=== PATIENT | female | born 1990 | race Caucasian/White ===

== ENCOUNTER 2016-12-01 20:34 | Emergency (ER) | payer OTHER ==
[~2016-12-01] VITALS: Ht 157.5 cm; Wt 68.0 kg
--- NOTE | 2016-12-01 21:23 | PHYS DOC ---
Adult General Chief Complaint Chief Complaint: ASTHMA HPI HPI Patient is a 26 year old female who presents here today complaining of shortness of breath difficult breathing sharp right-sided chest pain and a sore throat with sinus drainage going on for several days. Patient reports she is . Patient reports her last last menstrual period was August 13. Patient reports that she is August. Patient denies any history of hypertension diabetes liver or kidney pals. Patient denies any history of CHF. Patient has not had no abdominal surgeries. Patient portion of the history of asthma in the past. Patient is not on control pills. Patient does not smoke drink or do any drugs. Patient does not have a history of PE or DVT. Patient has any fevers shakes chills nausea vomiting diarrhea dysuria frequency urgency or abdominal pain. Patient's physical exam is remarkable for tenderness to palpation to her right anterior chest wall. Patient's oropharynx is mildly erythematous with apparent sinus drainage in the back of her throat. Patient's TMs were mildly erythematous with no drainage or fluid behind the TM. Patient's neck is supple without any Kernig's or Brudzinski's signs. Patient does not present with any signs or symptoms of be consistent with PE, pneumonia, pneumothorax, ND, or carditis. Patient is clinically and hemodynamically stable at this time. /PE patient presented with signs and symptoms that are consistent with likely allergic rhinitis resulting in cough chest pain sore throat or sinus drainage. Patient be given Benadryl and Tylenol to assist with her pain. Patient's clinically hemodynamically stable. The risks and benefits of chest x-ray discuss the patient she prefers no chest x-ray. Patient's EKG shows normal sinus rhythm at a heart rate of [address]-T wave abnormalities. Patient's EKG shows some mildly elevated ST segments however there are less than 1 mm and not consistent with ST elevation ND. Patient's symptoms are highly consistent with a ST elevation ND. Review of Systems Review of Systems Constitutional: Denies fever or chills [] Eyes: Denies change in visual acuity, redness, or eye pain [] HENT: + nasal congestion and sore throat [] Respiratory: + cough shortness of breath [] Cardiovascular: No additional information not addressed in HPI [] GI: Denies abdominal pain, nausea, vomiting, bloody stools or diarrhea [] : Denies dysuria or hematuria [] Musculoskeletal: Denies back pain or joint pain [] Integument: Denies rash or skin lesions [] Neurologic: Denies headache, focal weakness or sensory changes [] Endocrine: Denies polyuria or polydipsia [] Current Medications Current Medications Current Medications Medications (Trade) Dose Ordered Sig/Jorge Start Time Stop Time Status Last Admin Dose Admin Acetaminophen (Tylenol) 650 mg 1X ONCE 12/01/16 21:45 12/01/16 21:46 DC Albuterol Sulfate (Ventolin Neb Soln) 2.5 mg 1X ONCE 12/01/16 21:45 12/01/16 21:46 DC 12/01/16 21:34 2.5 MG Diphenhydramine HCl (Benadryl) 25 mg 1X ONCE 12/01/16 21:45 12/01/16 21:46 DC Allergies Allergies Allergies Coded Allergies Type Severity Reaction Last Updated Verified No Known Drug Allergies 12/01/16 No Physical Exam Physical Exam Constitutional: Well developed, well nourished, no acute distress, non-toxic appearance. [] HENT: Normocephalic, atraumatic, bilateral external ears normal, oropharynx mildly erythematous. No exudates. Eyes: PERRLA, EOMI, conjunctiva normal, no discharge. [] Neck: Normal range of motion, no tenderness, supple, no stridor. [] Cardiovascular:Heart rate regular rhythm, Lungs & Thorax: Bilateral breath sounds clear to auscultation [] Abdomen: Bowel sounds normal, soft, no tenderness, no masses, no pulsatile masses. [] Skin: Warm, dry, no erythema, no rash. [] Back: No tenderness, no CVA tenderness. [] Extremities: No tenderness, no cyanosis, no clubbing, ROM intact, no edema. [] Neurologic: Alert and oriented X 3, normal motor function, normal sensory function, no focal deficits noted. [] Psychologic: Affect normal, judgement normal, mood normal. [] Current Patient Data Vital Signs Vital Signs Date Time Temp Pulse Resp B/P (MAP) Pulse Ox O2 Delivery O2 Flow Rate FiO2 12/01/16 21:35 96 Room Air 12/01/16 21:30 104 22 105/61 (76) 12/01/16 21:04 98.3 98.3 Lab Values Laboratory Tests Test 12/01/16 20:04 POC Urine HCG, Qualitative Hcg positive (Negative) EKG EKG [] Radiology/Procedures Radiology/Procedures [] Course & Med Decision Making Course & Med Decision Making Pertinent Labs and Imaging studies reviewed. (See chart for details) [] Dragon Disclaimer Dragon Disclaimer This electronic medical record was generated, in whole or in part, using a voice recognition dictation system. Departure Departure Impression: Primary Impression: Chest wall pain Additional Impressions: Asthma Sinus drainage Disposition: HOME, SELF-CARE Condition: IMPROVED Patient Instructions: Chest Wall Pain, Headache and Allergies Scripts Albuterol Sulfate (VENTOLIN HFA INHALER) 18 Gm Hfa.aer.ad 2 PUFF INH QID Y for WHEEZING, #1 INHALER 0 Refills Prov: TOM ARIAS MD 12/01/16 Problem Qualifiers TOM ARIAS MD December 01, 2016 21:23
[2016-12-01 21:30] VITALS: BP 105/61
[2016-12-01] MEDS ORDERED: diphenhydrAMINE HCL 25 MG CAPSULE PO ONE (21:45)
[2016-12-01] MEDS ORDERED: ALBUTEROL SULFATE 2.5 MG/3 ML NEBU. NEB ONE (21:45)
[2016-12-01] MEDS ORDERED: ACETAMINOPHEN 325 MG TABLET. PO ONE (21:45)
[2016-12-01] MEDS ORDERED: VENTOLIN HFA18 GM INH (21:50)
--- NOTE | 2016-12-02 07:10 | EKG ---
[facility] [address] [place] [address] Test Date: 2016-12-01 Test Time: 20:51:05 Pat Name: AURELIO VANEGAS Department: Room: Gender: F Nurse Aide: : 1990 Requested By: TOM ARIAS Order Number: [id number] Reading MD: Hitesh Smallwood Measurements Intervals [place] Rate: 93 P: 49 ME: 138 QRS: 48 QRSD: 88 T: 17 QT: 334 QTc: 418 Interpretive Statements SINUS RHYTHM NON-SPECIFIC ST/T CHANGES Electronically Signed On 12-09-2016 8:50:10 CDT by Hitesh Smallwood
--- NOTE | 2016-12-02 07:10 | EKG ---
[facility] [address] [place] [address] Test Date: 2016-12-01 Test Time: 21:15:13 Pat Name: AURELIO VANEGAS Department: Room: Gender: F Schedule Maker: : 1990 Requested By: TOM ARIAS Order Number: [id number] Reading MD: Hitesh Smallwood Measurements Intervals [place] Rate: 91 P: 45 WI: 148 QRS: 46 QRSD: 88 T: 22 QT: 332 QTc: 410 Interpretive Statements SINUS RHYTHM Electronically Signed On 12-09-2016 8:50:15 CDT by Hitesh Smallwood
== END 2016-12-01 21:55 | disposition home or self-care (01) ==
LOC: ER 20:34
DX: O99.512 Diseases of the respiratory system complicating pregnancy, second trimester (principal); R07.89 Other chest pain; J45.909 Unspecified asthma, uncomplicated; Z3A.00 Weeks of gestation of pregnancy not specified
CPT/HCPCS: 81025; 93005; 94250; 94640; 99284-25

== ENCOUNTER 2017-07-01 17:09 | Emergency (ER) | payer OTHER ==
[~2017-07-01] VITALS: Ht 160 cm; Wt 68.0 kg
[~2017-07-01 17:09] MED LIST: VENTOLIN HFA18 GM INH
[2017-07-01 17:25] VITALS: BP 122/73
--- NOTE | 2017-07-01 17:52 | PHYS DOC ---
Past Medical History Past Medical History: Asthma Past Surgical History: No Surgical History Alcohol Use: None Drug Use: None Adult General Chief Complaint Chief Complaint: MEDICAL CLEARANCE HPI HPI Patient is a 26 year old female with history of asthma who presents today in the ED stating she lives in maternity home and one of the adult residents in the maternity home was seen in the ED earlier today and reported she was diagnosed with RSV and they were all sent to the ED to be tested for RSV. Patient has no symptoms. She is in the ED with 2 children with no symptoms. Review of Systems Review of Systems Constitutional: Denies fever or chills [] Eyes: Denies change in visual acuity, redness, or eye pain [] HENT: Denies nasal congestion or sore throat [] Respiratory: Denies cough or shortness of breath [] Cardiovascular: No additional information not addressed in HPI [] GI: Denies abdominal pain, nausea, vomiting, bloody stools or diarrhea [] : Denies dysuria or hematuria [] Musculoskeletal: Denies back pain or joint pain [] Integument: Denies rash or skin lesions [] Neurologic: Denies headache, focal weakness or sensory changes [] Endocrine: Denies polyuria or polydipsia [] All other systems were reviewed and found to be within normal limits, except as documented in this note. Allergies Allergies Allergies Coded Allergies Type Severity Reaction Last Updated Verified No Known Drug Allergies 12/01/16 No Physical Exam Physical Exam Constitutional: Well developed, well nourished, no acute distress, non-toxic appearance. [] HENT: Normocephalic, atraumatic, bilateral external ears normal, oropharynx moist, no oral exudates, nose normal. [] Eyes: PERRLA, EOMI, conjunctiva normal, no discharge. [] Neck: Normal range of motion, no tenderness, supple, no stridor. [] Cardiovascular:Heart rate regular rhythm, no murmur [] Lungs & Thorax: Bilateral breath sounds clear to auscultation [] Abdomen: Bowel sounds normal, soft, no tenderness, no masses, no pulsatile masses. [] Skin: Warm, dry, no erythema, no rash. [] Back: No tenderness, no CVA tenderness. [] Extremities: No tenderness, no cyanosis, no clubbing, ROM intact, no edema. [] Neurologic: Alert and oriented X 3, normal motor function, normal sensory function, no focal deficits noted. [] Psychologic: Affect normal, judgement normal, mood normal. [] Current Patient Data Vital Signs Vital Signs Date Time Temp Pulse Resp B/P (MAP) Pulse Ox O2 Delivery O2 Flow Rate FiO2 07/01/17 17:25 98.2 71 18 96 Room Air 98.2 EKG EKG [] Radiology/Procedures Radiology/Procedures [] Course & Med Decision Making Course & Med Decision Making Pertinent Labs and Imaging studies reviewed. (See chart for details) This a a 26 year old female who presents today in the ED stating she lives in maternity home and one of the adult residents there was seen in the ED earlier today and reported she was diagnosed with RSV and they were all sent to the ED to be tested for RSV. Patient has no symptoms. She is in the ED with 2 children with no symptoms. Reassured patient she does not have RSV considering she has no symptoms neither do adults get RSV and if they get symptoms it is considered an upper respiratory infection symptom. Recommended following up with the primary care doctor. Vani Disclaimer Dragon Disclaimer This electronic medical record was generated, in whole or in part, using a voice recognition dictation system. Departure Departure Impression: Primary Impression: Normal exam Disposition: 01 HOME, SELF-CARE Condition: STABLE Referrals: KAYLEEN REED MD (PCP) Follow-up in one week Patient Instructions: Exam, Normal, Adult Additional Instructions: You were examined in the emergency room are have a normal exam. You do not have any symptoms to warrant RSV infection. Adults get upper respiratory infection symptoms which you do not have. You do not need to be tested for RSV. ESTHELA BURTON TRUCK TRAILER MECHANIC Jul 01, 2017 17:52
== END 2017-07-01 18:07 | disposition home or self-care (01) ==
LOC: ER 17:09
DX: Z00.00 Encounter for general adult medical examination without abnormal findings (principal); J45.909 Unspecified asthma, uncomplicated
CPT/HCPCS: 99281

== ENCOUNTER 2017-12-16 20:56 | Emergency (ER) | payer OTHER ==
[2017-12-16 21:27] LABS: ADD MAN DIFF? NO
[2017-12-16 21:31] LABS: BASO % 0 % (0-3); EOS # 0.2 x10^3/uL (0.0-0.7); EOS % 3 % (0-3); HEMATOCRIT 40.6 % (36.0-47.0); HEMOGLOBIN 13.8 g/dL (12.0-15.5); LYMPH # 2.7 x10^3/uL (1.0-4.8); LYMPH % 37 % (24-48); MEAN CORPUSCULAR HEMOGLOBIN 30 pg (25-35); MEAN CORPUSCULAR HGB CONC 34 g/dL (31-37); MEAN CORPUSCULAR VOLUME 89 fL (79-100); MONO # 0.5 x10^3/uL (0.0-1.1); MONO % 7 % (0-9); NEUT # 3.7 x10^3uL (1.8-7.7); NEUT % 52 % (31-73); PLATELET COUNT 161 x10^3/uL (140-400); RED BLOOD COUNT 4.56 x10^6/uL (3.50-5.40); RED CELL DISTRIBUTION WIDTH 12.9 % (11.5-14.5); WHITE BLOOD COUNT 7.2 x10^3/uL (4.0-11.0)
[2017-12-16 21:44] LABS: URIC ACID 5.5 mg/dL (2.6-6.0)
== END 2017-12-16 21:56 | disposition home or self-care (01) ==
LOC: ER 20:56
DX: M10.9 Gout, unspecified (principal); J45.909 Unspecified asthma, uncomplicated
CPT/HCPCS: 36415; 84550; 85025; 99284

== ENCOUNTER → 2017-12-24 | Outpatient (CLI) | payer OTHER | END | disposition home or self-care (01) | LOC: KCIC 08:56 | DX: R10.2 Pelvic and perineal pain (principal) | CPT/HCPCS: 74018 ==

== ENCOUNTER 2018-02-17 19:53 | Emergency (ER) | payer OTHER | END 2018-02-17 20:38 | disposition home or self-care (01) | LOC: ER 19:53 | DX: H10.89 Other conjunctivitis (principal); B99.9 Unspecified infectious disease; J45.909 Unspecified asthma, uncomplicated; F31.9 Bipolar disorder, unspecified | CPT/HCPCS: 99283 ==

== ENCOUNTER 2018-07-14 19:06 | Emergency (ER) | payer OTHER ==
[~2018-07-14] VITALS: Ht 157.5 cm; Wt 83.0 kg
[~2018-07-14 19:06] MED LIST changes: +INDO25CA5 PO; +POLY10DR3 EACHEYE
[2018-07-14 19:29] VITALS: BP 142/85
[2018-07-14 19:45] LABS: BILIRUBIN,URINE NEGATIVE (NEG); CLARITY,URINE CLEAR; COLOR,URINE YELLOW; NITRITE,URINE NEGATIVE (NEG); PH,URINE 5.5; PROTEIN,URINE NEGATIVE (NEG-TRACE); UROBILINOGEN,URINE 0.2 mg/dL (0.2 mg/dL)
[2018-07-14 20:02] LABS: BACTERIA,URINE 0 /HPF (0-FEW); RBC,URINE 0 /HPF (0-2); SQUAMOUS EPITHELIAL CELL,UR MOD /LPF; WBC,URINE OCC /HPF (0-4)
[2018-07-14] MEDS ORDERED: DICY20TA3 PO (20:23)
[2018-07-14] MEDS ORDERED: LOPE2CAP88 PO (20:23)
[2018-07-14] MEDS ORDERED: ONDA4TAB12 PO (20:23)
--- NOTE | 2018-07-14 20:23 | PHYS DOC ---
Past Medical History Past Medical History: Asthma, Bipolar Past Surgical History: No Surgical History Alcohol Use: None Drug Use: None Adult General Chief Complaint Chief Complaint: DIARRHEA HPI HPI Patient is a 27 year old female with history of asthma, bipolar, who presents today complaining of abdominal cramping and diarrhea that began yesterday. Patient is in the ED bit to children with similar symptoms. Patient denies any fever. Denies any nausea vomiting. Denies any melena. Review of Systems Review of Systems Constitutional: Denies fever or chills [] Eyes: Denies change in visual acuity, redness, or eye pain [] HENT: Denies nasal congestion or sore throat [] Respiratory: Denies cough or shortness of breath [] Cardiovascular: No additional information not addressed in HPI [] GI: Reports abdominal cramping with diarrhea, denies nausea, vomiting, bloody stools : Denies dysuria or hematuria [] Musculoskeletal: Denies back pain or joint pain [] Integument: Denies rash or skin lesions [] Neurologic: Denies headache, focal weakness or sensory changes [] All other systems were reviewed and found to be within normal limits, except as documented in this note. Allergies Allergies Allergies Coded Allergies Type Severity Reaction Last Updated Verified No Known Drug Allergies 12/01/16 No Physical Exam Physical Exam Constitutional: Well developed, well nourished, no acute distress, non-toxic appearance. [] HENT: Normocephalic, atraumatic, bilateral external ears normal, oropharynx moist, no oral exudates, nose normal. [] Eyes: PERRLA, EOMI, conjunctiva normal, no discharge. [] Neck: Normal range of motion, no tenderness, supple, no stridor. [] Cardiovascular:Heart rate regular rhythm, no murmur [] Lungs & Thorax: Bilateral breath sounds clear to auscultation [] Abdomen: Bowel sounds normal, soft, no tenderness, no masses, no pulsatile masses. [] Skin: Warm, dry, no erythema, no rash. [] Back: No tenderness, no CVA tenderness. [] Extremities: No tenderness, no cyanosis, no clubbing, ROM intact, no edema. [] Neurologic: Alert and oriented X 3, normal motor function, normal sensory function, no focal deficits noted. [] Psychologic: Affect normal, judgement normal, mood normal. [] Current Patient Data Vital Signs Vital Signs Date Time Temp Pulse Resp B/P (MAP) Pulse Ox O2 Delivery O2 Flow Rate FiO2 07/14/18 19:29 98.3 82 16 142/85 (104) 100 Room Air 98.3 Lab Values Laboratory Tests Test 07/14/18 19:30 Urine Collection Type Unknown Urine Color Yellow Urine Clarity Clear Urine pH 5.5 Urine Specific [place] >=1.030 Urine Protein Negative mg/dL (NEG-TRACE) Urine Glucose (UA) Negative mg/dL (NEG) Urine Ketones (Stick) Negative mg/dL (NEG) Urine Blood Negative (NEG) Urine Nitrite Negative (NEG) Urine Bilirubin Negative (NEG) Urine Urobilinogen Dipstick 0.2 mg/dL (0.2 mg/dL) Urine Leukocyte Esterase Negative (NEG) Urine RBC 0 /HPF (0-2) Urine WBC Occ /HPF (0-4) Urine Squamous Epithelial Cells Mod /LPF Urine Bacteria 0 /HPF (0-FEW) Urine Mucus Marked /LPF EKG EKG [] Radiology/Procedures Radiology/Procedures [] Course & Med Decision Making Course & Med Decision Making Pertinent Labs and Imaging studies reviewed. (See chart for details) This is a 27-year-old. The patient presented to the ED today with abdominal cramping and diarrhea for one day. Patient is in the ED with 2 children with similar symptoms. Negative urine hCG, urine negative for infection. Symptoms are viral, discharged with Zofran and dicyclomine. Instructed push fluids and maintain good hand hygiene. Follow-up with the PCP in the course of next week if symptoms continue. Dragon Disclaimer Dragon Disclaimer This electronic medical record was generated, in whole or in part, using a voice recognition dictation system. Departure Departure Impression: Primary Impression: Abdominal pain Additional Impression: Diarrhea Disposition: HOME, SELF-CARE Condition: STABLE Referrals: NO PCP (PCP) ALEX SLAUGHTER MD follow up in one week Patient Instructions: Abdominal Pain, Diarrhea, [id number] Additional Instructions: You were evaluated in the emergency room for abdominal cramping and diarrhea, your symptoms are likely viral, push fluids, maintain good hand hygiene, follow up with your own doctor in 1-2 weeks. Scripts Ondansetron (ONDANSETRON ODT) 4 Mg Tab.rapdis 1 TAB PO PRN Q6-8HRS, #16 TAB Prov: MUTUNGA,ESTHELA RANJIT 07/14/18 Loperamide HCl (Imodium A-D) 2 Mg Capsule 2 MG PO TID, #12 CAP Prov: ESTHELA BURTON RANJIT 07/14/18 Dicyclomine Hcl (DICYCLOMINE HCL) 20 Mg Tablet 1 TAB PO TID, #30 TAB 1 Refill Prov: ESTHELA BURTON RANJIT 07/14/18 Attending Signature Attending Signature I have reviewed the PA/COACH's note and plan of care. I was available for consultation as needed during the patient's visit in the emergency department. I agree with the clinical impression, plan, and disposition. Problem Qualifiers Primary Impression: Abdominal pain Abdominal location: generalized Qualified Codes: R10.84 - Generalized abdominal pain Additional Impression: Diarrhea Diarrhea type: unspecified type Qualified Codes: R19.7 - Diarrhea, unspecified ESTHELA BURTON RANJIT Jul 14, 2018 20:23 NICOLETTE CHANDRA DO Jul 15, 2018 04:32
== END 2018-07-14 20:34 | disposition home or self-care (01) ==
LOC: ER 19:06
DX: R10.84 Generalized abdominal pain (principal); R19.7 Diarrhea, unspecified; J45.909 Unspecified asthma, uncomplicated; F41.9 Anxiety disorder, unspecified
CPT/HCPCS: 81001; 99283

== ENCOUNTER 2018-09-30 15:37 | Emergency (ER) | payer OTHER ==
[~2018-09-30] VITALS: Ht 157.5 cm; Wt 83.0 kg
[~2018-09-30 15:37] MED LIST changes: +DICY20TA3 PO; +LOPE2CAP88 PO; +ONDA4TAB12 PO
[2018-09-30 16:05] VITALS: BP 122/62
--- NOTE | 2018-09-30 16:32 | PHYS DOC ---
Past Medical History Past Medical History: Asthma, Bipolar Past Surgical History: No Surgical History Alcohol Use: None Drug Use: None Adult General Chief Complaint Chief Complaint: COUGH HPI HPI Patient is a 27 year old female with history of asthma, bipolar, who presents to the ED today complaining of sore throat, body aches, chills, cough, nasal congestion, fevers, symptoms for 3 days, patient is in the ED with 2 children with similar symptoms. Review of Systems Review of Systems Constitutional: Reports fever Eyes: Denies change in visual acuity, redness, or eye pain [] HENT: Reports sore throat and nasal congestion Respiratory: Reports cough, denies shortness of breath [] Cardiovascular: No additional information not addressed in HPI [] GI: Denies abdominal pain, nausea, vomiting, bloody stools or diarrhea [] : Denies dysuria or hematuria [] Musculoskeletal: Denies back pain or joint pain [] Integument: Denies rash or skin lesions [] Neurologic: Denies headache, focal weakness or sensory changes [] All other systems were reviewed and found to be within normal limits, except as documented in this note. Allergies Allergies Allergies Coded Allergies Type Severity Reaction Last Updated Verified No Known Drug Allergies 12/01/16 No Physical Exam Physical Exam Constitutional: Well developed, well nourished, no acute distress, non-toxic appearance. [] HENT: Normocephalic, atraumatic, bilateral external ears normal, oropharynx moist, no oral exudates, nose normal. [] Eyes: PERRLA, EOMI, conjunctiva normal, no discharge. [] Neck: Normal range of motion, no tenderness, supple, no stridor. [] Cardiovascular:Heart rate regular rhythm, no murmur [] Lungs & Thorax: Bilateral breath sounds clear to auscultation [] Abdomen: Bowel sounds normal, soft, no tenderness, no masses, no pulsatile masses. [] Skin: Warm, dry, no erythema, no rash. [] Back: No tenderness, no CVA tenderness. [] Extremities: No tenderness, no cyanosis, no clubbing, ROM intact, no edema. [] Neurologic: Alert and oriented X 3, normal motor function, normal sensory function, no focal deficits noted. [] Psychologic: Affect normal, judgement normal, mood normal. [] Current Patient Data Vital Signs Vital Signs Date Time Temp Pulse Resp B/P (MAP) Pulse Ox O2 Delivery O2 Flow Rate FiO2 09/30/18 16:05 99.2 98 18 122/62 (82) 100 Room Air 99.2 Lab Values Laboratory Tests Test 09/30/18 16:00 Influenza Type A Antigen Negative (NEGATIVE) Influenza Type B Antigen Negative (NEGATIVE) EKG EKG [] Radiology/Procedures Radiology/Procedures [] Course & Med Decision Making Course & Med Decision Making Pertinent Labs and Imaging studies reviewed. (See chart for details) This is a 27-year-old. Presenting to the ED today with a viral illness symptoms including subjective fevers, body aches, fever, cough, nasal congestion, sore throat, symptoms for 3 days. Negative rapid strep. Negative influenza A or B. Symptoms are likely viral. Supportive measures recommended. Follow-up with primary care doctor as needed. Dragon Disclaimer Dragon Disclaimer This electronic medical record was generated, in whole or in part, using a voice recognition dictation system. Departure Departure Impression: Primary Impression: Cough Additional Impressions: URI (upper respiratory infection) Viral pharyngitis Disposition: 01 HOME, SELF-CARE Condition: STABLE Referrals: NO PCP (PCP) follow up with your doctor in 1-2 weeks Patient Instructions: Cough, Adult, [id number], Upper Respiratory Infection, Adult, [id number] Additional Instructions: You were evaluated in the emergency room for symptoms consistent of an upper respiratory infection/viral illness. Take [id number] remedies as needed. Also take Tylenol or Motrin for pain or fever. Follow-up with your doctor in 1- 2 weeks as needed. Problem Qualifiers Additional Impressions: URI (upper respiratory infection) URI type: unspecified URI Qualified Codes: J06.9 - Acute upper respiratory infection, unspecified ESTHELA BURTON GAME SHOW HOST Sep 30, 2018 16:32
[2018-09-30 17:16] LABS: INFLUENZA A PATIENT NEGATIVE (NEGATIVE); INFLUENZA B PATIENT NEGATIVE (NEGATIVE)
== END 2018-09-30 17:55 | disposition home or self-care (01) ==
LOC: ER 15:37
DX: J02.8 Acute pharyngitis due to other specified organisms (principal); B97.89 Other viral agents as the cause of diseases classified elsewhere; J45.909 Unspecified asthma, uncomplicated; F31.9 Bipolar disorder, unspecified
CPT/HCPCS: 87070; 87804; 87880; 99283

== ENCOUNTER 2019-03-18 14:37 | Emergency (ER) | payer OTHER ==
[~2019-03-18] VITALS: Ht 172.7 cm; Wt 77.1 kg
[2019-03-18 15:03] VITALS: BP 141/75
[2019-03-18] MEDS ORDERED: ORPH100T PO (15:19)
--- NOTE | 2019-03-18 15:20 | PHYS DOC ---
Past Medical History Past Medical History: Asthma, Bipolar Past Surgical History: No Surgical History Alcohol Use: None Drug Use: None Adult General Chief Complaint Chief Complaint: BACK PAIN OR INJURY HPI HPI Patient is a 28 year old female who presents with right upper back pain. 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 This started this morning at work. She rates her pain as 8 out of 10 in severity since its shooting achy and throbbing. Not tried any interventions prior to arrival. Review of Systems Review of Systems Constitutional: Denies fever or chills [] Eyes: Denies change in visual acuity, redness, or eye pain [] HENT: Denies nasal congestion or sore throat [] Respiratory: Denies cough or shortness of breath [] Cardiovascular: No additional information not addressed in HPI [] GI: Denies abdominal pain, nausea, vomiting, bloody stools or diarrhea [] : Denies dysuria or hematuria [] Musculoskeletal: Reports back pain.] Integument: Denies rash or skin lesions [] Neurologic: Denies headache, focal weakness or sensory changes [] Endocrine: Denies polyuria or polydipsia [] Complete systems were reviewed and found to be within normal limits, except as documented in this note. Allergies Allergies Allergies Coded Allergies Type Severity Reaction Last Updated Verified No Known Drug Allergies 12/01/16 No Physical Exam Physical Exam Constitutional: Well developed, well nourished, no acute distress, non-toxic appearance. [] HENT: Normocephalic, atraumatic, bilateral external ears normal, oropharynx moist, no oral exudates, nose normal. [] Eyes: PERRLA, EOMI, conjunctiva normal, no discharge. [] Neck: reduced range of motion, right sided neck tenderness, supple, no stridor. [] Cardiovascular:Heart rate regular rhythm, no murmur [] Lungs & Thorax: Bilateral breath sounds clear to auscultation [] Abdomen: Bowel sounds normal, soft, no tenderness, no masses, no pulsatile masses. [] Skin: Warm, dry, no erythema, no rash. [] Back: Tenderness to musculature running from right scapula to right side of neck.] Extremities: No tenderness, no cyanosis, no clubbing, ROM intact, no edema. [] Neurologic: Alert and oriented X 3, normal motor function, normal sensory function, no focal deficits noted. [] Psychologic: Affect normal, judgement normal, mood normal. [] EKG EKG [] Radiology/Procedures Radiology/Procedures [] Course & Med Decision Making Course & Med Decision Making Pertinent Labs and Imaging studies reviewed. (See chart for details) Appears to be musculoskeletal in nature. Discussed nonpharmacologic measures that can be used at home such as heat, and ruling out the muscle. Also prescribed Norflex to go home on. Dragon Disclaimer Dragon Disclaimer This electronic medical record was generated, in whole or in part, using a voice recognition dictation system. Departure Departure Impression: Primary Impression: Musculoskeletal back pain Disposition: HOME, SELF-CARE Condition: STABLE Referrals: KAYLEEN REED MD (PCP) Patient Instructions: Musculoskeletal Pain Additional Instructions: Thank you for visiting [facility]. We appreciate you trusting us with your care. If any additional problems come up don't hesitate to return to visit us. Please follow up with your primary care provider so they can plan additional care if needed and know about the problem that you had. If symptoms worsen come back to the Emergency Department. Any concerning symptoms that start such as chest pain, shortness of air, weakness or numbness on one side of the body, running high fevers or any other concerning symptoms return to the ER. Please fill your medications at any pharmacy and follow the prescription instruc tions. Scripts Orphenadrine Citrate (ORPHENADRINE CITRATE) 100 Mg Tablet.er 1 TAB PO BID PRN for MUSCLE SPASMS, #20 TAB Prov: NICOLETTE CAGE APRN 03/18/19 NICOLETTE CAGE APRN Mar 18, 2019 15:19
== END 2019-03-18 15:23 | disposition home or self-care (01) ==
LOC: ER 14:37
DX: M54.6 Pain in thoracic spine (principal); J45.909 Unspecified asthma, uncomplicated; F31.9 Bipolar disorder, unspecified
CPT/HCPCS: 99283

== ENCOUNTER 2019-06-04 18:02 | Emergency (ER) | payer OTHER ==
[~2019-06-04] VITALS: Ht 157.5 cm; Wt 82.1 kg
[~2019-06-04 18:02] MED LIST changes: +INDO25CA21 PO; -INDO25CA5 PO; +LOPE-101 PO; -LOPE2CAP88 PO; +ORPH100T PO
[2019-06-04 18:08] VITALS: BP 138/75
[2019-06-04] MEDS ORDERED: ORPH100T PO (19:17)
[2019-06-04] MEDS ORDERED: IBUP-1007 PO (19:17)
--- NOTE | 2019-06-04 19:17 | PHYS DOC ---
Past Medical History Past Medical History: Asthma, Bipolar (NATASHA MANCILLA APRN) Past Surgical History: No Surgical History (NATASHA MANCILLA APRN) Alcohol Use: None Drug Use: None (NATASHA MANCILLA APRN) Attending Signature I have participated in the care of this patient and I have reviewed and agree with all pertinent clinical information above including history, exam, and recommendations. (LONI SANCHEZ MD) Adult General Chief Complaint Chief Complaint: BACK PAIN OR INJURY HPI HPI Patient is a 28 year old female who presents with states she was driving to work this morning when her mid back bilaterally began to ache with sharp shooting pains. Patient states the pain is worse with movement and sitting a certain way. Patient rates her pain a 8/10. Patient states she worked all day. 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 Patient denies injury. Patient states she took 2 extra strength Tylenols at 9:30 AM today and did not really help her pain. (NATASHA MANCILLA APRN) Review of Systems Review of Systems Musculoskeletal: low back pain or joint pain [] All other systems were reviewed and found to be within normal limits, except as documented in this note. (NATASHA MANCILLA APRN) Allergies Allergies Allergies Coded Allergies Type Severity Reaction Last Updated Verified No Known Drug Allergies 12/01/16 No (LONI SANCHEZ MD) Physical Exam Physical Exam Constitutional: Well developed, well nourished, no acute distress, non-toxic ap pearance. [] Skin: Warm, dry, no erythema, no rash. [] Back: No tenderness, no CVA tenderness. [] Extremities: No tenderness, no cyanosis, no clubbing, ROM intact, no edema. [] Neurologic: Alert and oriented X 3, normal motor function, normal sensory function, no focal deficits noted. [] Psychologic: Affect normal, judgement normal, mood normal. [ ] (NATASHA MANCILLA APRN) Current Patient Data Vital Signs Vital Signs Date Time Temp Pulse Resp B/P (MAP) Pulse Ox O2 Delivery O2 Flow Rate FiO2 06/04/19 18:08 98.3 63 17 138/75 (96) 100 Room Air 98.3 (LONI SANCHEZ MD) EKG EKG [] (NATASHA MANCILLA APRN) Radiology/Procedures Radiology/Procedures [] (NATASHA MANCILLA APRN) Course & Med Decision Making Course & Med Decision Making Ambulatory with a steady gait. Speaks in full clear sentences. Vital signs are within normal limits. No tenderness to palpation. No spinal bony tenderness. Patient states it hurts with movement but she can bend and twist her back. Patient denies any numbness or tingling or loss of bowel and bladder. Patient did drive herself here. Skin pink warm and dry. Alert and oriented. Patient denies dysuria or urinary symptoms, abdominal pain, nausea, vomiting, shortness of air, fever, chest pain, dizziness, headache. She is given prescription for Benadryl and ibuprofen. Patient follow-up primary care provider and try using a heating pad. (NATASHA MANCILLA APRN) Dragon Disclaimer Dragon Disclaimer This electronic medical record was generated, in whole or in part, using a voice recognition dictation system. (NATASHA MANCILLA APRN) Departure Departure Impression: Primary Impression: Musculoskeletal back pain Disposition: HOME, SELF-CARE Condition: STABLE Referrals: KAYLEEN REED MD (PCP) Patient Instructions: Back Exercises, Back Injury Prevention, Back Pain, Adult Additional Instructions: Follow up with primary care provider. Use a heating pad. Take medications as prescribed. Scripts Ibuprofen (IBUPROFEN) 600 Mg Tablet 600 MG PO PRN Q6HRS PRN for INFLAMMATION, #20 TAB Prov: NATASHA MANCILLA APRN 06/04/19 Orphenadrine Citrate (ORPHENADRINE CITRATE) 100 Mg Tablet.er 1 TAB PO BID, #20 TAB 1 Refill Prov: NATASHA MANCILLA APRN 06/04/19 NATASHA MANCILLA APRN Jun 04, 2019 19:17 LONI SANCHEZ MD Jun 05, 2019 05:29
== END 2019-06-04 19:21 | disposition home or self-care (01) ==
LOC: ER 18:02
DX: M54.5 Low back pain (principal); J45.909 Unspecified asthma, uncomplicated; F31.9 Bipolar disorder, unspecified
CPT/HCPCS: 99283

== ENCOUNTER 2019-06-14 09:43 | Emergency (ER) | payer OTHER ==
[~2019-06-14] VITALS: Ht 157.5 cm; Wt 82.1 kg
[~2019-06-14 09:43] MED LIST changes: +IBUP-1007 PO
--- NOTE | 2019-06-14 10:13 | PHYS DOC ---
Past Medical History Past Medical History: Asthma, Bipolar Past Surgical History: No Surgical History Alcohol Use: None Drug Use: None Adult General Chief Complaint Chief Complaint: PLEURISY HPI HPI Patient is a 28 year old due to 8-year-old female patient with history of asthma and bipolar who presents to the ED today complaining of 8 out of 10 sharp left sided chest pain worse on coughing, deep breaths and moving the left upper extremity that began a week ago. Patient states the pain is intermittent. Patient denies anything specifically relieving the pain. Denies any chance she is . She states she has used her inhaler with no relief. Review of Systems Review of Systems Constitutional: Denies fever or chills [] Eyes: Denies change in visual acuity, redness, or eye pain [] HENT: Denies nasal congestion or sore throat [] Respiratory: Denies cough or shortness of breath [] Cardiovascular: Reports left sided chest pain GI: Denies abdominal pain, nausea, vomiting, bloody stools or diarrhea [] : Denies dysuria or hematuria [] Musculoskeletal: Denies back pain or joint pain [] Integument: Denies rash or skin lesions [] Neurologic: Denies headache, focal weakness or sensory changes [] All other systems were reviewed and found to be within normal limits, except as documented in this note. Current Medications Current Medications Current Medications Medications (Trade) Dose Ordered Sig/Jorge Start Time Stop Time Status Last Admin Dose Admin Acetaminophen (Tylenol) 1,000 mg 1X ONCE 06/14/19 12:00 06/14/19 12:01 DC 06/14/19 12:30 1,000 MG Aspirin (Ann Marie Aspirin) 325 mg 1X ONCE 06/14/19 10:15 06/14/19 10:16 DC 06/14/19 10:31 325 MG Morphine Sulfate (Morphine Sulfate) 4 mg PRN Q15MIN PRN 06/14/19 10:15 06/15/19 10:14 06/14/19 10:32 4 MG Nitroglycerin (Nitrostat) 0.4 mg PRN Q5MIN PRN 06/14/19 10:15 06/15/19 10:14 Allergies Allergies Allergies Coded Allergies Type Severity Reaction Last Updated Verified No Known Drug Allergies 12/01/16 No Physical Exam Physical Exam Constitutional: Well developed, well nourished, no acute distress, non-toxic appearance. [] HENT: Normocephalic, atraumatic, bilateral external ears normal, oropharynx moist, no oral exudates, nose normal. [] Eyes: PERRLA, EOMI, conjunctiva normal, no discharge. [] Neck: Normal range of motion, no tenderness, supple, no stridor. [] Cardiovascular:Heart rate regular rhythm, no murmur [] Lungs & Thorax: Bilateral breath sounds clear to auscultation [] Abdomen: Bowel sounds normal, soft, no tenderness, no masses, no pulsatile masses. [] Skin: Warm, dry, no erythema, no rash. [] Back: No tenderness, no CVA tenderness. [] Extremities: No tenderness, no cyanosis, no clubbing, ROM intact, no edema. [] Neurologic: Alert and oriented X 3, normal motor function, normal sensory function, no focal deficits noted. [] Psychologic: Affect normal, judgement normal, mood normal. [] Current Patient Data Vital Signs Vital Signs Date Time Temp Pulse Resp B/P (MAP) Pulse Ox O2 Delivery O2 Flow Rate FiO2 06/14/19 10:57 97.9 68 18 131/58 (82) 96 Room Air 97.9 Lab Values Laboratory Tests Test 06/14/19 10:25 06/14/19 10:50 06/14/19 10:52 White Blood Count 4.2 x10^3/uL (4.0-11.0) Red Blood Count 4.58 x10^6/uL (3.50-5.40) Hemoglobin 13.8 g/dL (12.0-15.5) Hematocrit 40.9 % (36.0-47.0) Mean Corpuscular Volume 89 fL (79-100) Mean Corpuscular Hemoglobin 30 pg (25-35) Mean Corpuscular Hemoglobin Concent 34 g/dL (31-37) Red Cell Distribution Width 13.0 % (11.5-14.5) Platelet Count 155 x10^3/uL (140-400) Neutrophils (%) (Auto) 48 % (31-73) Lymphocytes (%) (Auto) 40 % (24-48) Monocytes (%) (Auto) 7 % (0-9) Eosinophils (%) (Auto) 5 % (0-3) H Basophils (%) (Auto) 0 % (0-3) Neutrophils # (Auto) 2.0 x10^3/uL (1.8-7.7) Lymphocytes # (Auto) 1.7 x10^3/uL (1.0-4.8) Monocytes # (Auto) 0.3 x10^3/uL (0.0-1.1) Eosinophils # (Auto) 0.2 x10^3/uL (0.0-0.7) Basophils # (Auto) 0.0 x10^3/uL (0.0-0.2) Sodium Level 144 mmol/L (136-145) Potassium Level 3.7 mmol/L (3.5-5.1) Chloride Level 107 mmol/L (98-107) Carbon Dioxide Level 27 mmol/L (21-32) Anion Gap 10 (6-14) Blood Urea Nitrogen 13 mg/dL (7-20) Creatinine 0.8 mg/dL (0.6-1.0) Estimated GFR (Cockcroft-Gault) 84.8 BUN/Creatinine Ratio 16 (6-20) Glucose Level 102 mg/dL (70-99) H Calcium Level 9.1 mg/dL (8.5-10.1) Magnesium Level 1.8 mg/dL (1.8-2.4) Total Bilirubin 0.2 mg/dL (0.2-1.0) Aspartate Amino Transferase (AST) 24 U/L (15-37) Alanine Aminotransferase (ALT) 21 U/L (14-59) Alkaline Phosphatase 65 U/L (46-116) Creatine Kinase 163 U/L (26-192) Creatine Kinase MB (Mass) 3.1 ng/mL (0.0-3.6) Creatine Kinase MB Relative Index 1.9 % (0-4) Troponin I Quantitative < 0.017 ng/mL (0.000-0.055) DH-Ika-Z-Type Natriuretic Peptide 58 pg/mL (0-124) Total Protein 7.3 g/dL (6.4-8.2) Albumin 3.7 g/dL (3.4-5.0) Albumin/Globulin Ratio 1.0 (1.0-1.7) Thyroid Stimulating Hormone (TSH) 2.264 uIU/mL (0.358-3.74) Ethyl Alcohol Level < 10 mg/dL (0-10) Urine Collection Type Unknown Urine Color Yellow Urine Clarity Clear Urine pH 7.0 Urine Specific Valera 1.020 Urine Protein Negative mg/dL (NEG-TRACE) Urine Glucose (UA) Negative mg/dL (NEG) Urine Ketones (Stick) Negative mg/dL (NEG) Urine Blood Negative (NEG) Urine Nitrite Negative (NEG) Urine Bilirubin Negative (NEG) Urine Urobilinogen Dipstick 0.2 mg/dL (0.2 mg/dL) Urine Leukocyte Esterase Negative (NEG) Urine RBC 0 /HPF (0-2) Urine WBC Rare /HPF (0-4) Urine Squamous Epithelial Cells Few /LPF Urine Bacteria 0 /HPF (0-FEW) Urine Mucus Marked /LPF Urine Opiates Screen Neg (NEG) Urine Methadone Screen Neg (NEG) Urine Barbiturates Neg (NEG) Urine Phencyclidine Screen Neg (NEG) Urine Amphetamine/Methamphetamine Neg (NEG) Urine Benzodiazepines Screen Neg (NEG) Urine Cocaine Screen Neg (NEG) Urine Cannabinoids Screen Neg (NEG) Urine Ethyl Alcohol Neg (NEG) POC Urine HCG, Qualitative Hcg negative (Negative) Laboratory Tests 06/14/19 10:25 Laboratory Tests 06/14/19 10:25 EKG EKG [address] Lourdes agosto rhythm HR 68 no STEMI[] Radiology/Procedures Radiology/Procedures []PROCEDURE: PORTABLE CHEST 1V EXAM: Chest, single view. HISTORY: Chest pain. COMPARISON: None. FINDINGS: A frontal view of the chest obtained. There is no infiltrate, pleural effusion or pneumothorax. The heart is normal in size. IMPRESSION: No acute pulmonary finding. Electronically signed by: Jania Dolan MD (06/14/2019 11:51 AM) [facility] DICTATED and SIGNED BY: JANIA DOLAN MD DATE: 06/14/19 5399 Course & Med Decision Making Course & Med Decision Making Pertinent Labs and Imaging studies reviewed. (See chart for details) This is a 28-year-old female patient presenting to the ED today with complaints of chest pain, symptoms began a week ago. Chest x-ray interpreted by radiologist as negative for any acute findings. Ca rdiac workup is negative. Heart score is 0, PERC score 0, patient was discharged to home. Provided cardiology for follow-up. OTC pain relievers. Dragon Disclaimer Dragon Disclaimer This electronic medical record was generated, in whole or in part, using a voice recognition dictation system. PERC Rule for PE PERC Rule for PE Response (Comments) Value Age > 50: No 0 HR > 100: No 0 Sa02 on room air <95%: No 0 Unilateral leg swelling: No 0 Hemoptysis: No 0 Recent surgery or trauma: No 0 Prior PE or DVT: No 0 Hormone use: No 0 Total 0 The HEART Score for CP Pts HEART Score for Chest Pain: HEART Score for Chest Pain Response (Comments) Value History Slighlty/Non-Suspicious 0 ECG Normal 0 Age < 45 0 Risk Factors No Risk Factors 0 Troponin < Normal Limit 0 Total 0 Risk Factors: Risk Factors: DM, Current or recent (<one month) smoker, HTN, HLP, family history of CAD, obesity. Risk Scores: Score 0 - 3: 2.5% MACE over next 6 weeks - Discharge Home Score 4 - 6: 20.3% MACE over next 6 weeks - Admit for Clinical Observation Score 7 - 10: 72.7% MACE over next 6 weeks - Early Invasive Strategies Departure Departure Impression: Primary Impression: Chest pain Disposition: HOME, SELF-CARE Condition: STABLE Referrals: NO PCP (PCP) follow up next week CALLIE DREW MD Patient Instructions: Chest Pain (Nonspecific), [id number] Additional Instructions: You were evaluated in the emergency room for chest pain, your cardiac workup is negative for any acute findings. 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 You can take over the counter medicines as needed The HEART Score for CP Pts HEART Score for Chest Pain: HEART Score for Chest Pain Response (Comments) Value History Slighlty/Non-Suspicious 0 ECG Normal 0 Age < 45 0 Risk Factors No Risk Factors 0 Troponin < Normal Limit 0 Total 0 Risk Factors: Risk Factors: DM, Current or recent (<one month) smoker, HTN, HLP, family history of CAD, obesity. Risk Scores: Score 0 - 3: 2.5% MACE over next 6 weeks - Discharge Home Score 4 - 6: 20.3% MACE over next 6 weeks - Admit for Clinical Observation Score 7 - 10: 72.7% MACE over next 6 weeks - Early Invasive Strategies Problem Qualifiers Primary Impression: Chest pain Chest pain type: unspecified Qualified Codes: R07.9 - Chest pain, unspecified MUTUNGA,ESTHELA HOME CARE MUSIC THERAPIST Jun 14, 2019 10:13
[2019-06-14] MEDS ORDERED: MORPHINE SULFATE 4 MG/ML VIAL. IV/SQ PRN (10:15)
[2019-06-14] MEDS ORDERED: NITROGLYCERIN SUBLINGUAL 0.4 MG BOTTLE OF 25. SL PRN (10:15)
[2019-06-14] MEDS ORDERED: ASPIRIN 325 MG TABLET PO ONE (10:15)
[2019-06-14 10:43] LABS: BASO % 0 % (0-3); EOS # 0.2 x10^3/uL (0.0-0.7); EOS % 5 % (0-3); HEMATOCRIT 40.9 % (36.0-47.0); HEMOGLOBIN 13.8 g/dL (12.0-15.5); LYMPH # 1.7 x10^3/uL (1.0-4.8); LYMPH % 40 % (24-48); MEAN CORPUSCULAR HEMOGLOBIN 30 pg (25-35); MEAN CORPUSCULAR HGB CONC 34 g/dL (31-37); MEAN CORPUSCULAR VOLUME 89 fL (79-100); MONO # 0.3 x10^3/uL (0.0-1.1); MONO % 7 % (0-9); NEUT % 48 % (31-73); PLATELET COUNT 155 x10^3/uL (140-400); RED BLOOD COUNT 4.58 x10^6/uL (3.50-5.40); WHITE BLOOD COUNT 4.2 x10^3/uL (4.0-11.0)
[2019-06-14 10:53] LABS: CALCIUM 9.1 mg/dL (8.5-10.1); CREATININE 0.8 mg/dL (0.6-1.0); GFR 84.8; POTASSIUM 3.7 mmol/L (3.5-5.1)
[2019-06-14 10:58] LABS: ALBUMIN 3.7 g/dL (3.4-5.0); MAGNESIUM 1.8 mg/dL (1.8-2.4); TOTAL BILIRUBIN 0.2 mg/dL (0.2-1.0); TOTAL PROTEIN 7.3 g/dL (6.4-8.2)
[2019-06-14 11:01] LABS: BILIRUBIN,URINE NEGATIVE (NEG); CLARITY,URINE CLEAR; COLOR,URINE YELLOW; NITRITE,URINE NEGATIVE (NEG); PROTEIN,URINE NEGATIVE (NEG-TRACE); UROBILINOGEN,URINE 0.2 mg/dL (0.2 mg/dL)
[2019-06-14 11:06] LABS: AMPHETAMINE/METHAMPHETAMINE NEG (NEG); BARBITURATES NEG (NEG); BENZODIAZEPINES NEG (NEG); CANNABINOIDS NEG (NEG); COCAINE NEG (NEG); METHADONE NEG (NEG); OPIATES NEG (NEG); PHENCYCLIDINE NEG (NEG)
[2019-06-14 11:12] LABS: BACTERIA,URINE 0 /HPF (0-FEW); RBC,URINE 0 /HPF (0-2); SQUAMOUS EPITHELIAL CELL,UR FEW /LPF; WBC,URINE RARE /HPF (0-4)
--- NOTE | 2019-06-14 11:54 | RAD ---
EXAM: Chest, single view. HISTORY: Chest pain. COMPARISON: None. FINDINGS: A frontal view of the chest obtained. There is no infiltrate, pleural effusion or pneumothorax. The heart is normal in size. IMPRESSION: No acute pulmonary finding. Electronically signed by: Jania Dolan MD (06/14/2019 11:51 AM) [place] [id number]
[2019-06-14] MEDS ORDERED: ACETAMINOPHEN 500 MG TABLET PO ONE (12:00)
--- NOTE | 2019-06-14 12:20 | EKG ---
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
[2019-06-14 12:30] VITALS: BP 108/56
== END 2019-06-14 13:09 | disposition home or self-care (01) ==
LOC: ER 09:43
DX: R07.89 Other chest pain (principal); R05 Cough; M79.602 Pain in left arm; J45.909 Unspecified asthma, uncomplicated; F31.9 Bipolar disorder, unspecified
CPT/HCPCS: 36415; 71045; 80053; 80307; 81001; 81025; 82553; 83735; 83880; 84443; 84484; 85025; 93005; 96374; 99285; G0480; J2270

== ENCOUNTER 2019-10-04 18:08 | Emergency (ER) | payer OTHER ==
[~2019-10-04] VITALS: Ht 157.5 cm; Wt 81.8 kg
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
[2019-10-04] MEDS ORDERED: NAPR-683 PO (18:34)
[2019-10-04] MEDS ORDERED: CYCL10TA2 PO (18:34)
[2019-10-04 18:46] VITALS: BP 131/74
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
== END 2019-10-04 20:00 | disposition home or self-care (01) ==
LOC: ER 18:08
DX: S16.1XXA Strain of muscle, fascia and tendon at neck level, initial encounter (principal); S50.12XA Contusion of left forearm, initial encounter; J45.909 Unspecified asthma, uncomplicated; F31.9 Bipolar disorder, unspecified; Z87.891 Personal history of nicotine dependence; V49.88XA Car occupant (driver) (passenger) injured in other specified transport accidents, initial encounter; Y92.488 Other paved roadways as the place of occurrence of the external cause; Y93.89 Activity, other specified; Y99.8 Other external cause status
CPT/HCPCS: 72040; 99283

== ENCOUNTER 2021-03-06 12:55 | Emergency (ER) | payer OTHER ==
[~2021-03-06] VITALS: Ht 165.1 cm; Wt 95.5 kg
[~2021-03-06 12:55] MED LIST changes: +CYCL10TA2 PO; +NAPR-683 PO
[2021-03-06] MEDS ORDERED: IBUPROFEN 200 MG TABLET. PO ONE (14:00)
--- NOTE | 2021-03-06 15:29 | PHYS DOC ---
Past Medical History Past Medical History: Asthma, Bipolar Past Surgical History: No Surgical History Smoking Status: Former Smoker Alcohol Use: None Drug Use: None General Adult EDM: Chief Complaint: FLU SYMPTOM HPI: HPI: Patient is a 30 year old female presents to the emergency department stating she has all of the COVID-19 symptoms, she states that she looked up the symptoms on the Internet and noticed that she had "everything "patient reports dizziness, fatigue, loss of taste, loss of smell, off-and-on headaches, muscle fatigue, sore throat, states everything hurts when she moves. Patient reports symptoms have been going on for 2 days. Patient reports her last menstrual cycle was the end of December 2020, states she is on Depo-Provera, states she has not had sex in months and cannot be . Patient denies any other physical complaints or physical concerns. Patient denies receiving the COVID-19 virus vaccination series. Review of Systems: Review of Systems: 14 body systems of review of systems have been reviewed. See HPI for pertinent positives and negative responses, otherwise all other systems are negative, nonpertinent or noncontributory. Constitutional: Negative except as outlined in HPI above. Skin: Negative except as outlined in HPI above. Eyes: Negative except as outlined in HPI above. HENT: Negative except as outlined in HPI above. Respiratory: Negative except as outlined in HPI above. Cardiovascular: Negative except as outlined in HPI above. GI: Negative except as outlined in HPI above. : Negative except as outlined in HPI above. Musculoskeletal: Negative except as outlined in HPI above. Integument: Negative except as outlined in HPI above. Neurologic: Negative except as outlined in HPI above. Endocrine: Negative except as outlined in HPI above. Lymphatic: Negative except as outlined in HPI above. Psychiatric: Negative except as outlined in HPI above. Heart Score: C/O Chest Pain: No Risk Factors: Risk Factors: DM, Current or recent (<one month) smoker, HTN, HLP, family history of CAD, obesity. Risk Scores: Score 0 - 3: 2.5% MACE over next 6 weeks - Discharge Home Score 4 - 6: 20.3% MACE over next 6 weeks - Admit for Clinical Observation Score 7 - 10: 72.7% MACE over next 6 weeks - Early Invasive Strategies Current Medications: Current Medications Medications (Trade) Dose Ordered Sig/Jorge Start Time Stop Time Status Last Admin Dose Admin Ibuprofen (Motrin) 600 mg 1X ONCE 03/06/21 14:00 03/06/21 14:03 DC Allergies: Allergies: Allergies Coded Allergies Type Severity Reaction Last Updated Verified No Known Drug Allergies 12/01/16 No Physical Exam: PE: Constitutional: Well developed, well nourished, no acute distress, non-toxic appearance. 30-year-old female in no apparent distress. HENT: Normocephalic, atraumatic. Oropharynx moist, no drooling, no trismus, no lymphadenopathy of the head or neck appreciated, bilateral tonsillar swelling without exudative drainage, no postnasal drip, no laryngeal edema appreciated, no uvular edema appreciated. Mildly erythematous oropharynx. Lateral TMs within normal limits. Eyes: Conjunctiva normal, no discharge. Neck: Normal range of motion, no stridor. No nuchal rigidity, no meningismus signs. Cardiovascular: No cyanosis appreciated, distal cap refill less than 2 seconds. Lungs & Thorax: Patient is in no respiratory distress, no audible adventitious lung sounds appreciated. Lung sounds clear to auscultate all lung barajas. Abdomen: Nontender, no abnormalities noted. Skin: Warm, dry, no erythema, no rash. Back: No tenderness, no deformities. Extremities: No tenderness, no cyanosis, no clubbing, ROM intact, no edema. Neurologic: Alert and oriented X 3, normal motor function, normal sensory function, no focal deficits noted. Psychologic: Affect normal, judgement normal, mood normal. Current Patient Data: Vital Signs: Vital Signs Date Time Temp Pulse Resp B/P (MAP) Pulse Ox O2 Delivery O2 Flow Rate FiO2 03/06/21 13:29 100.0 112 16 117/79 100 Room Air 100.0 EKG: EKG: [] Radiology/Procedures: Radiology/Procedures: [] Course & Med Decision Making: Course & Med Decision Making Pertinent Labs and Imaging studies reviewed. (See chart for details) 30-year-old female, vital signs reviewed, presents to the emergency department complaining of having the COVID-19 virus symptoms. Physical examination concerning for strep throat versus URI. Related to patient's multiple complaints of COVID-19 symptoms will order COVID-19 virus routine study, rapid strep today. Patient is afebrile and in no apparent distress, nontoxic in appearance. Patient denies shortness of breath or chest congestion, the patient was not febrile, patient's O2 sat 99% on room air, chest x-ray not indicated. Patient's rapid strep a negative, discussed with patient COVID-19 PUI. Discussed with the patient all findings and diagnostic testing as well as the need to follow-up with their primary care provider for further evaluation and treatment or return to the ED if any new or worsening symptoms. Strict return precautions were also discussed at length, the patient voiced understanding and agreement with the discharge planning. The patient was nontoxic in appearance, in no apparent distress, and hemodynamically stable at the time of disposition. Dragon Disclaimer: [employer] Disclaimer: This electronic medical record was generated, in whole or in part, using a voice recognition dictation system. Departure Departure Impression: Primary Impression: URI (upper respiratory infection) Qualified Codes: J06.9 - Acute upper respiratory infection, unspecified Additional Impression: Person under investigation for COVID-19 Disposition: HOME / SELF CARE / HOMELESS Condition: GOOD Referrals: KAYLEEN REED MD (PCP) Patient Instructions: Viral Syndrome Additional Instructions: You are seen in the emergency department for evaluation of a cough, sore throat, fatigue. A strep screen was performed, you do not have strep throat. Your exam was reassuring. Your testing showed here no acute abnormalities. It is unclear as to the cause of your symptoms but at this time it could be related to a viral illness which does include the infection with COVID-19. Because of this you should quarantine at home until the COVID-19 test today returns as negative. If it returns positive, you will need to quarantine for 14 days or until your symptoms completely resolve, whichever is longer. In the meantime, continue to hydrate with plenty of fluids, use a humidifier in the room at night to help with dryness, use [id number] cough medicines and cough drops to help with sore throat and cough, and alternate ibuprofen and Tylenol as needed for aches pains as well as fevers. You should return to the emergency department if you develop a worsening cough, shortness of breath, chest pain, or any other new or concerning symptoms. The cough, if related to a viral illness may persist for a few weeks but your other symptoms should gradually improve. Your COVID-19 results should be available within the next 48 hours. Thank you for visiting our Emergency Department. It was a pleasure taking care of you today in the emergency department and we appreciate you trusting us with your care. If any additional problems come up don't hesitate to return to visit us. Please follow up with your primary care provider so they can plan additional care if needed and know about the problem that you had. If symptoms worsen come back to the Emergency Department. Any concerning symptoms that start such as chest pain, shortness of air, weakness or numbness on one side of the body, running high fevers or any other concerning symptoms return to the ER. I have attached COVID-19 virus information to this document, please review. EMERGENCY DEPARTMENT GENERAL DISCHARGE INSTRUCTIONS Thank you for coming to [facility] Emergency Department (ED) today and trusting us with you care. We trust that you had a positive experience in our Emergency Department. If you wish to speak to the department management, you may call the Director at [phone]. YOUR FOLLOW UP INSTRUCTIONS ARE FOLLOWS: 1. Do you have a private Doctor? If you do not have a private doctor, please ask for a resource list of physicians or clinics that may be able to assist you with follow up care. 2. The Emergency Physicain has interpreted your x-rays. The X-Ray specialist will also review them. If there is a change in the findings, you will be notified in 48 hours when at all possible. 3. A lab test or culture has been done, your results will be reviewed and you will be notified if you need a change in treatment. ADDITIONAL INSTRUCTIONS AND INFORMATION: 1. Your care today has been supervised by a physician who is specially trained in emergency care. Many problems require more than one evaluation for a complete diagnosis and treatment. We recommend that you schedule your follow up appointment as recommended to ensure complete treatment of you illness or injury. If you are unable to obtain follow up care and continue to have a problem, or if your condition worsens, we recommend that you return to the ED. 2. We are not able to safely determine your condition over the phone nor are we able to give sound medical advice over the phone. For these safety reasons, if you call for medical advice we will ask you to come to the ED for further evaluation. 3. If you have any questions regarding these discharge instructions please call the ED at [phone]. SAFETY INFORMATION: In the interest of safety, wellness, and injury prevention; we encourage you to wear your sealbelt, if you smoke; quite smoking, and we encourage family to use a prote ctive helmet for bicycling and other sporting events that present an increased risk for head injury. IF YOUR SYMPTOMS WORSEN OR NEW SYMPTOMS DEVELOP, OR YOU HAVE CONCERNS ABOUT YOUR CONDITION; OR IF YOUR CONDITION WORSENS WHILE YOU ARE WAITING FOR YOUR FOLLOW UP APPOINTMENT; EITHER CONTACT YOUR PRIMARY CARE DOCTOR, THE PHYSICIAN WHOSE NAME AND NUMBER YOU WERE GIVEN, OR RETURN TO THE ED IMMEDIATELY. You have been tested for or diagnosed with COVID-19. It is an infection caused by a new type of coronavirus. COVID-19 will cause cold-like or mild flu symptoms in most. It can cause more severe symptoms like problems breathing in some. There is no treatment for COVID-19. The body will clear the infection over time. Self-care will help to ease discomfort. Steps to Take: Self-Care Rest as needed. Healthy habits may help you feel better. Steps include: Choose healthy foods including fruits and vegetables. Drink water throughout the day. Get plenty of sleep each night. If you smoke, try to quit. It may ease breathing. Avoid alcohol. Keep Others Healthy The virus can spread to others. Droplets are released every time you sneeze or c ough. The droplets can get into the mouth, nose, or eyes of people near you and lead to infection. To lower the chances of spreading COVID-19 to others: Stay at home until your doctor has said it is safe to leave. If you tested positive this will mean staying isolated until both of the following are true: At least 7 days have passed since the start of illness. You are free of fever for at least 72 hours without the use of medicine. During this time: - Avoid public areas, events, or transportation. Do not return to work or school until your doctor has said it is safe to do so. - Call ahead if you need to go to a medical center. Let them know you may have COVID-19. It will help them guide you where to go. They may also ask you to wear a facemask when you come to the office. - If you call for emergency medical services, let them know you may have COVID- 19. While at home: - Try to avoid close contact with others. Stay about 6 feet away. - If possible, spend most of your time in a separate room from others. - Use a face mask if you will be in close contact with others such as sharing a room or vehicle. - Have someone wipe down common surfaces in the home. Use household biofuels production manager every day on areas like doorknobs, counters, or sinks. - Cough or sneeze into a tissue. Throw the tissue away right after use. If a tissue is not available, cough or sneeze into your elbow. - Wash your hands often. Wash them after sneezing or coughing. Use soap and water and wash for at least 20 seconds. Alcohol based hand waste cotton cleaner can be used if soap and water is not available. - Do not prepare food for others. Avoid sharing personal items like forks, spoons, or toothbrushes. - Avoid close contact with pets while you are sick. There is no evidence of the virus passing to pets. This is a safety step until more is known about this virus. Isolation can be frustrating. Social interaction can help. Keep in touch with friends and family through phone and tech options. You can still interact with others in your home, just keep a safe distance of about 6 feet. Follow-up: Your doctors office will check in with you to see if there are any changes in your health. You may be asked to keep track of symptoms to share with them. They will also let you know when you are clear to be in public again. Problems to Look Out For: Contact your doctor if your recovery is not going as you expect. Get emergency care if you have problems such as: - Trouble breathing - Nonstop chest pain or pressure - Changes in awareness, confusion, or problems waking - Lips or face have bluish color - Worsening of symptoms If you think you have an emergency, call for emergency medical services right away. As taken from [employer] [facility] Scripts Ibuprofen (IBUPROFEN) 600 Mg Tablet 600 MG PO PRN Q6HRS PRN for INFLAMMATION, #30 TAB 0 Refills Prov: NICOLETTE CARD APRN 03/06/21 NICOLETTE CARD STORE ASSOCIATE Mar 06, 2021 15:29
[2021-03-06 15:40] VITALS: BP 122/80
[2021-03-06] MEDS ORDERED: IBUP-1007 PO (15:54)
--- NOTE | 2021-03-08 09:53 | NUR ---
IP: Informed pt of positive covid test and the need to quarantine for 10 days. Pt verbalized understanding.
== END 2021-03-06 15:40 | disposition home or self-care (01) ==
LOC: ER 12:55
DX: U07.1 COVID-19 (principal); J06.9 Acute upper respiratory infection, unspecified; F31.9 Bipolar disorder, unspecified; J45.909 Unspecified asthma, uncomplicated; Z87.891 Personal history of nicotine dependence
CPT/HCPCS: 87070; 87880; 99283; U0003; U0005

== ENCOUNTER 2021-07-14 02:38 | Emergency (ER) | payer OTHER ==
[~2021-07-14] VITALS: Ht 157.5 cm; Wt 97.0 kg
[~2021-07-14 02:38] MED LIST changes: +CYCL10TA19 PO; -CYCL10TA2 PO; +DICY20TA PO; -DICY20TA3 PO
[2021-07-14 02:55] VITALS: BP 138/75
[2021-07-14] MEDS ORDERED: CYCL10TA19 PO (03:13)
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
== END 2021-07-14 03:26 | disposition home or self-care (01) ==
LOC: ER 02:38
DX: M54.2 Cervicalgia (principal); R09.89 Other specified symptoms and signs involving the circulatory and respiratory systems; R07.9 Chest pain, unspecified; R06.02 Shortness of breath; J45.909 Unspecified asthma, uncomplicated; F31.9 Bipolar disorder, unspecified
CPT/HCPCS: 99283

== ENCOUNTER 2021-08-02 18:38 | Emergency (ER) | payer OTHER ==
[~2021-08-02] VITALS: Ht 157.5 cm; Wt 97.2 kg
[2021-08-02 23:05] VITALS: BP 145/82
[2021-08-02] MEDS ORDERED: DEXAMETHASONE 4 MG TABLET PO ONE (23:30)
--- NOTE | 2021-08-02 23:50 | PHYS DOC ---
Past Medical History Past Medical History: Asthma, Bipolar Past Surgical History: No Surgical History Smoking Status: Former Smoker Alcohol Use: None Drug Use: None General Adult EDM: Chief Complaint: FLU SYMPTOM HPI: HPI: Patient is a 30-year-old female that presents today with cough, body aches, difficulty with deep deep inspiration, and sore throat. Patient states her symptoms started on Friday, and she is requesting a test for Covid. She does have a history of asthma and was diagnosed with COVID-19 in February of 2021. Patient states she has not had any Covid vaccines. Review of Systems: Review of Systems: Constitutional: Fever chills Eyes: Denies change in visual acuity. [] HENT: Denies nasal congestion or sore throat. [] Respiratory: cough, difficulty with deep inspiration [] Cardiovascular: Denies chest pain or edema. [] GI: Denies abdominal pain, nausea, vomiting, bloody stools or diarrhea. [] : Denies dysuria. [] Musculoskeletal: Body aches Integument: Denies rash. [] Neurologic: Denies headache, focal weakness or sensory changes. [] Endocrine: Denies polyuria or polydipsia. [] Lymphatic: Denies swollen glands. [] Psychiatric: Denies depression or anxiety. [] Heart Score: C/O Chest Pain: N/A Risk Factors: Risk Factors: DM, Current or recent (<one month) smoker, HTN, HLP, family history of CAD, obesity. Risk Scores: Score 0 - 3: 2.5% MACE over next 6 weeks - Discharge Home Score 4 - 6: 20.3% MACE over next 6 weeks - Admit for Clinical Observation Score 7 - 10: 72.7% MACE over next 6 weeks - Early Invasive Strategies Current Medications: Current Medications Medications (Trade) Dose Ordered Sig/Jorge Start Time Stop Time Status Last Admin Dose Admin Dexamethasone (Decadron) 10 mg 1X ONCE 08/02/21 23:30 08/02/21 23:31 DC Allergies: Allergies: Allergies Coded Allergies Type Severity Reaction Last Updated Verified No Known Drug Allergies 12/01/16 No Physical Exam: PE: Constitutional: Well developed, well nourished, MILD distress, non-toxic appearance. [] HENT: Normocephalic, atraumatic, bilateral external ears normal, oropharynx moist, no oral exudates, nose normal. [] Eyes: PERRLA, EOMI, conjunctiva normal, no discharge. [] Neck: Normal range of motion, no tenderness, supple, no stridor. [] Cardiovascular:Heart rate regular rhythm, no murmur [] Lungs & Thorax: Bilateral breath sounds diminished breath sounds [] Abdomen: Bowel sounds normal, soft, no tenderness, no masses, no pulsatile masses. [] Skin: Warm, dry, no erythema, no rash. [] Back: No tenderness, no CVA tenderness. [] Extremities: No tenderness, no cyanosis, no clubbing, ROM intact, no edema. [] Neurologic: Alert and oriented X 3, normal motor function, normal sensory function, no focal deficits noted. [] Psychologic: Affect normal, judgement normal, mood normal. [] Current Patient Data: Labs: Laboratory Tests Test 08/02/21 23:30 Influenza Type A Antigen Negative Influenza Type B Antigen Negative Current Medications Medications (Trade) Dose Ordered Sig/Jorge Route PRN Reason Start Time Stop Time Status Last Admin Dose Admin Dexamethasone (Decadron) 10 mg 1X ONCE PO 08/02/21 23:30 08/02/21 23:31 DC Acetaminophen (Tylenol) 1,000 mg 1X ONCE PO 08/03/21 00:00 08/03/21 00:01 DC Vital Signs: Did review vital signs with the RN, oxygen saturation was 98 to 99%., Temp 101.2F EKG: EKG: [] Radiology/Procedures: Radiology/Procedures: REASON: COUGH PROCEDURE: CHEST AP ONLY EXAM: AP View of the chest DATE: 08/02/2021 11:31 PM INDICATION: Reason: COUGH / Spl. Instructions: / History: COMPARISON: No Prior FINDINGS: The heart is not enlarged. Mediastinal and hilar contours are normal. No focal parenchymal airspace opacity. No pleural effusion or pneumothorax. IMPRESSION: 1. No radiographic evidence for acute cardiopulmonary process. Electronically signed by: Meek Caal MD (08/02/2021 11:47 PM) [facility] [] Course & Med Decision Making: Course & Med Decision Making Pertinent Labs and Imaging studies reviewed. (See chart for details) 0015 spoke to patient regarding influenza negative results, informed her that her COVID-19 results will be within the next 24 to 48 hours. Instructed her to quarantine until her results back. Continue to take Tylenol and/or ibuprofen as needed for fever and pain. Increase by mouth fluids. Return to the emergency department for increased work of breathing, inability to keep Tylenol and/or Motrin or liquids down, and his lips become blue. Vani Disclaimer: Vani Disclaimer: This electronic medical record was generated, in whole or in part, using a voice recognition dictation system. Departure Departure Impression: Primary Impression: Suspected 2019 novel coronavirus infection Disposition: HOME / SELF CARE / HOMELESS Condition: STABLE Referrals: MARIZA FERRIS APRN (PCP) Additional Instructions: You have been tested for or diagnosed with COVID-19. It is an infection caused by a new type of coronavirus. COVID-19 will cause cold-like or mild flu symptoms in most. It can cause more severe symptoms like problems breathing in some. There is no treatment for COVID-19. The body will clear the infection over time. Self-care will help to ease discomfort. Steps to Take: Self-Care Rest as needed. Healthy habits may help you feel better. Steps include: Choose healthy foods including fruits and vegetables. Drink water throughout the day. Get plenty of sleep each night. If you smoke, try to quit. It may ease breathing. Avoid alcohol. Keep Others Healthy The virus can spread to others. Droplets are released every time you sneeze or cough. The droplets can get into the mouth, nose, or eyes of people near you and lead to infection. To lower the chances of spreading COVID-19 to others: Stay at home until your doctor has said it is safe to leave. If you tested positive this will mean staying isolated until both of the following are true: At least 10 days have passed since the start of illness. You are free of fever for at least 72 hours without the use of medicine. During this time: - Avoid public areas, events, or transportation. Do not return to work or school until your doctor has said it is safe to do so. - Call ahead if you need to go to a medical center. Let them know you may have COVID-19. It will help them guide you where to go. They may also ask you to wear a facemask when you come to the office. - If you call for emergency medical services, let them know you may have COVID- 19. While at home: - Try to avoid close contact with others. Stay about 6 feet away. - If possible, spend most of your time in a separate room from others. - Use a face mask if you will be in close contact with others such as sharing a room or vehicle. - Have someone wipe down common surfaces in the home. Use household ball thread machine tender every day on areas like doorknobs, counters, or sinks. - Cough or sneeze into a tissue. Throw the tissue away right after use. If a tissue is not available, cough or sneeze into your elbow. - Wash your hands often. Wash them after sneezing or coughing. Use soap and water and wash for at least 20 seconds. Alcohol based hand chrome cleaner can be used if soap and water is not available. - Do not prepare food for others. Avoid sharing personal items like forks, spoons, or toothbrushes. - Avoid close contact with pets while you are sick. There is no evidence of the virus passing to pets. This is a safety step until more is known about this virus. Isolation can be frustrating. Social interaction can help. Keep in touch with friends and family through phone and tech options. You can still interact with others in your home, just keep a safe distance of about 6 feet. Follow-up: Your doctors office will check in with you to see if there are any changes in your health. You may be asked to keep track of symptoms to share with them. They will also let you know when you are clear to be in public again. Problems to Look Out For: Contact your doctor if your recovery is not going as you expect. Get emergency care if you have problems such as: - Trouble breathing - Nonstop chest pain or pressure - Changes in awareness, confusion, or problems waking - Lips or face have bluish color - Worsening of symptoms If you think you have an emergency, call for emergency medical services right away. As taken from [facility] Aug 02, 2021 23:50
[2021-08-03] MEDS ORDERED: ACETAMINOPHEN 500 MG TABLET PO ONE
[2021-08-03 00:01] LABS: INFLUENZA A PATIENT NEGATIVE (NEGATIVE); INFLUENZA B PATIENT NEGATIVE (NEGATIVE)
--- NOTE | 2021-08-03 11:22 | NUR ---
IP: Informed pt of positive covid test and the need to quarantine for 10 days. Pt verbalized understanding.
== END 2021-08-03 00:48 | disposition home or self-care (01) ==
LOC: ER 18:38
DX: U07.1 COVID-19 (principal); F31.9 Bipolar disorder, unspecified; J45.909 Unspecified asthma, uncomplicated; Z87.891 Personal history of nicotine dependence
CPT/HCPCS: 71045; 87804; 99284; U0003; U0005

== ENCOUNTER 2021-10-03 20:03 | Emergency (ER) | payer OTHER ==
[~2021-10-03] VITALS: Ht 157.5 cm; Wt 100.9 kg
[2021-10-03] MEDS ORDERED: ONDANSETRON ODT 4 MG TAB.RAPDIS. PO ONE (20:45)
[2021-10-03] MEDS ORDERED: IBUPROFEN 400 MG TABLET. PO ONE (20:45)
[2021-10-03] MEDS ORDERED: DEXAMETHASONE 4 MG TABLET PO ONE (20:45)
--- NOTE | 2021-10-03 20:54 | PHYS DOC ---
Past Medical History Past Medical History: Asthma, Bipolar Past Surgical History: No Surgical History Smoking Status: Former Smoker Alcohol Use: None Drug Use: None General Adult EDM: Chief Complaint: MECHANICAL FALL HPI: HPI: Patient is a 30 year old female who presents with states she was taking the trash out at her job this evening and when she went to step back up the stairs to go into the back door at work there was some ice buildup in her left leg went out from underneath her and she landed on her back. She states that she does not think that she hit her head but is feeling dizzy, having bilateral sides of her neck pain and tightness, nausea, numbness and tingling in her buttocks and in her vaginal area. She states that somebody helped her up and she got back up. She states she then got her car and got her children who was driving home but she was in so much pain that she turned around and came to the emergency room. She did not take any medication for her pain prior to arrival. She denies chest pain, shortness of breath, syncope, hitting her head, headache, abdominal pain, vomiting, vision change, joint pain, laceration or abrasions, focal weakness, loss of bowel bladder. Her discomfort an 8 out of 10. Review of Systems: Review of Systems: Constitutional: Denies fever or chills. [] Eyes: Denies change in visual acuity. [] HENT: Denies nasal congestion or sore throat. [] Respiratory: Denies cough or shortness of breath. [] Cardiovascular: Denies chest pain or edema. [] GI: Denies abdominal pain, +nausea, denies vomiting, bloody stools or diarrhea. [] : Denies dysuria. [] Musculoskeletal: + Cervical back pain or denies joint pain. [] Integument: Denies rash. [] Neurologic: Denies headache, focal weakness or sensory changes. + Numbness and tingling to buttock and vaginal area. + Dizziness [] Endocrine: Denies polyuria or polydipsia. [] Lymphatic: Denies swollen glands. [] Psychiatric: Denies depression or anxiety. [] Heart Score: C/O Chest Pain: No Current Medications: Current Medications Medications (Trade) Dose Ordered Sig/Jorge Start Time Stop Time Status Last Admin Dose Admin Dexamethasone (Decadron) 10 mg 1X ONCE 10/03/21 20:45 3/9/22 20:46 DC Ibuprofen (Motrin) 800 mg 1X ONCE 10/03/21 20:45 10/03/21 20:46 DC Ondansetron HCl (Zofran Odt) 4 mg 1X ONCE 10/03/21 20:45 10/03/21 20:46 DC Allergies: Allergies: Allergies Coded Allergies Type Severity Reaction Last Updated Verified No Known Drug Allergies 12/01/16 No Physical Exam: PE: Constitutional: Well developed, well nourished, no acute distress, non-toxic appearance. [] HENT: Normocephalic, atraumatic, bilateral external ears normal, oropharynx moist, no oral exudates, nose normal. [] Eyes: PERRLA, EOMI, conjunctiva normal, no discharge. [] Neck: Normal range of motion, no tenderness, supple, no stridor. [] Cardiovascular:Heart rate regular rhythm, no murmur [] Lungs & Thorax: Bilateral breath sounds clear to auscultation [] Abdomen: Bowel sounds normal, soft, no tenderness, no masses, no pulsatile masses. [] Skin: Warm, dry, no erythema, no rash. [] Back: No tenderness, no CVA tenderness. Lateral side of neck tenderness into the trapezius. Full range of motion of the neck. No focal bony spinal tenderness. [] Extremities: No tenderness, no cyanosis, no clubbing, ROM intact, no edema. [] Neurologic: Alert and oriented X 3, normal motor function, normal sensory function, no focal deficits noted. Numbness and tingling to the buttock and vaginal area and some to the upper thighs [] Psychologic: Affect normal, judgement normal, mood normal. [] Current Patient Data: Vital Signs: Vital Signs Date Time Temp Pulse Resp B/P (MAP) Pulse Ox O2 Delivery O2 Flow Rate FiO2 10/03/21 20:19 98.3 94 22 164/94 (117) 99 Room Air 98.3 EKG: EKG: [] Radiology/Procedures: Radiology/Procedures: [] Impression: [facility] [address] [place] [address] IMAGING REPORT Signed PATIENT: AURELIO VANEGAS RACCOUNT: [id number] : 1990 LOCATION: ER AGE: 30 SEX: F EXAM STATUS: REG ER ORD. PHYSICIAN: NATASHA MANCILLA APRN REASON: FALL, PAIN PROCEDURE: SACRUM & COCCYX 3V XR SACRUM AND COCCYX 2+VIEWS History: Reason: FALL, PAIN / Spl. Instructions: / History: Technique: 3 views of the coccyx and sacrum. Comparison: None. Findings: Symmetric appearance of the sacroiliac joints. No acute fracture. Impression: 1. No acute osseous abnormality. Electronically signed by: Sang Stapleton DO (10/03/2021 10:04 PM) [facility] DICTATED and SIGNED BY: SANG STAPLETON DO DATE: 10/03/21 [id number] [facility] [address] [place] [address] IMAGING REPORT Signed PATIENT: AURELIO VANEGAS RACCOUNT: [id number] : 1990 LOCATION: ER AGE: 30 SEX: F EXAM STATUS: REG ER ORD. PHYSICIAN: NATASHA MANCILLA APRN REASON: FALL, PAIN, DIZZINESS PROCEDURE: CT HEAD AND CERVICAL SPINE WO CT HEAD AND C-SPINE WO History: Reason: FALL, PAIN, DIZZINESS / Spl. Instructions: / History: Comparison: None. Technique: Noncontrast CT imaging was performed of the head and cervical spine. Coronal and sagittal reconstructions were performed. Exposure: One or more of the following individualized dose reduction techniques were utilized for this examination: 1. Automated exposure control 2. Adjustment of the mA and/or kV according to patient size 3. Use of iterative reconstruction technique. Findings: Head CT: No intracranial hemorrhage. No mass effect. No hydrocephalus. Extra- axial spaces are unremarkable. Imaged orbits are unremarkable. Bilateral maxillary sinus because retention cysts or polyps. Mastoid air cells are clear. No acute calvarial fracture. Cervical spine CT: Straightening of the cervical spine, likely positional. Normal vertebral body height. No acute fracture. Disc spaces are well-maintained. Soft tissues unremarkable. Impression: Head CT: 1. No acute intracranial abnormality. Cervical spine CT: 1. No acute fracture or subluxation of the cervical spine. Electronically signed by: Sang Stapleton DO (10/03/2021 10:18 PM) [facility] DICTATED and SIGNED BY: SANG STAPLETON DO DATE: 10/03/[id number] 0 [facility] [address] [place] [address] IMAGING REPORT Signed PATIENT: AURELIO VANEGAS RACCOUNT: [id number] : 1990 LOCATION: ER AGE: 30 SEX: F EXAM STATUS: REG ER ORD. PHYSICIAN: NATASHA MANCILLA APRN REASON: FALL, PAIN, DIZZINESS PROCEDURE: CT LUMBAR SPINE WO CONTRAST CT LUMBAR SPINE WO, CT THORACIC SPINE WO History:Reason: FALL, PAIN, DIZZINESS / Spl. Instructions: / History: Technique: Noncontrast CT was performed of the thoracic and lumbar spine. Multiplanar reconstructions were performed. Exposure: One or more of the following individualized dose reduction techniques were utilized for this examination: 1. Automated exposure control 2. Adjustment of the mA and/or kV according to patient size 3. Use of iterative reconstruction technique. Comparison: None Findings: Thoracic spine: Normal vertebral body height and alignment. No fracture. No significant canal or neuroforaminal narrowing. Lumbar spine: Normal vertebral body height and alignment. No fracture. No significant canal or neuroforaminal narrowing. Mild lower lumbar facet arthropathy. Impression: 1. No acute fracture or subluxation of the thoracolumbar spine. Electronically signed by: Sang Stapleton DO (10/03/2021 10:23 PM) [facility] DICTATED and SIGNED BY: SANG STAPLETON DO DATE: 10/03/[id number] 0 Course & Med Decision Making: Course & Med Decision Making Pertinent Labs and Imaging studies reviewed. (See chart for details) See HPI. Alert and oriented x4. Ambulatory with a steady gait. No focal bony spinal tenderness. Tenderness to the sides of her neck into the trapezius area. 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 No CVA tenderness. No bruising to her back or deformity to the spine. Full range of motion of the neck. No trauma to the skull or face. No lacerations, abrasions or bruising seen. No joint deformity, swelling. No joint laxity. Moving all joints equally. Abdomen soft and nontender. No pain over the chest with palpation. There is no bruising to the abdomen on the chest. No pain to the rib cage, no crepitus, no subcutaneous emphysema. Lungs are clear to all stational lobes. [] X-ray and CT shows no acute findings. Patient is having sharp shooting pain shooting down the left leg from the lower back area. She is having tingling and sharp pains through the gluteus and into the vaginal area. No problems with dorsiflexion. Dragon Disclaimer: [employer] Disclaimer: This electronic medical record was generated, in whole or in part, using a voice recognition dictation system. Departure Departure Impression: Primary Impression: Musculoskeletal back pain Additional Impressions: Fall Qualified Codes: W19.XXXA - Unspecified fall, initial encounter Dizziness Sciatic leg pain Disposition: HOME / SELF CARE / HOMELESS Condition: STABLE Referrals: MARIZA FERRIS APRN (PCP) DONALD COPELAND MD Patient Instructions: Fall Prevention and Home Safety, Muscle Strain, Sciatica with [facility] Additional Instructions: Follow-up with work comp or primary care. Drink plenty fluids. Take medication as prescribed and with food. Wear the similes medications will make you sleepy so you should not drive a vehicle or work on these medications. You can buy [id number] creams to have lidocaine that will soak in for aggravated nerves. Remember do not put a heating pad over any of these creams as we spoke about because it will burn your skin. If you lose bowel or bladder control or have weakness in any of your extremities return to emergency room. Scripts Cyclobenzaprine Hcl (CYCLOBENZAPRINE HCL) 10 Mg Tablet 1 TAB PO TID, #15 TAB Prov: NATASHA MANCILLA APRN 10/03/21 Ibuprofen (IBUPROFEN) 600 Mg Tablet 600 MG PO PRN Q6HRS PRN for INFLAMMATION, #30 TAB Prov: NATASHA MANCILLA APRN 10/03/21 NATASHA MANCILLA APRN Oct 03, 2021 20:54
[2021-10-03 21:11] LABS: CLARITY,URINE CLEAR; COLOR,URINE YELLOW
[2021-10-03 21:12] LABS: BILIRUBIN,URINE NEGATIVE (NEG); NITRITE,URINE NEGATIVE (NEG); PROTEIN,URINE NEGATIVE (NEG-TRACE); UROBILINOGEN,URINE 0.2 mg/dL (0.2 mg/dL)
[2021-10-03 21:13] LABS: BACTERIA,URINE 0 /HPF (0-FEW); RBC,URINE OCC /HPF (0-2); WBC,URINE OCC /HPF (0-4)
--- NOTE | 2021-10-03 22:06 | RAD ---
XR SACRUM AND COCCYX 2+VIEWS History: Reason: FALL, PAIN / Spl. Instructions: / History: Technique: 3 views of the coccyx and sacrum. Comparison: None. Findings: Symmetric appearance of the sacroiliac joints. No acute fracture. Impression: 1. No acute osseous abnormality. Electronically signed by: Sang Stapleton DO (10/03/2021 10:04 PM) [facility]
--- NOTE | 2021-10-03 22:21 | RAD ---
CT HEAD AND C-SPINE WO History: Reason: FALL, PAIN, DIZZINESS / Spl. Instructions: / History: Comparison: None. Technique: Noncontrast CT imaging was performed of the head and cervical spine. Coronal and sagittal reconstructions were performed. Exposure: One or more of the following individualized dose reduction techniques were utilized for thi s examination: 1. Automated exposure control 2. Adjustment of the mA and/or kV according to patient size 3. Use of iterative reconstruction technique. Findings: Head CT: No intracranial hemorrhage. No mass effect. No hydrocephalus. Extra-axial spaces are unrema rkable. Imaged orbits are unremarkable. Bilateral maxillary sinus because retention cysts or polyps. Mastoid air cells are clear. No acute calvarial fracture. Cervical spine CT: Straightening of the cervical spine, likely positional. Normal vertebral body height. No acute fractu re. Disc spaces are well-maintained. Soft tissues unremarkable. Impression: Head CT: 1. No acute intracranial abnormality. Cervical spine CT: 1. No acute fracture or subluxation of the cervical spine. Electronically signed by: Sang Stapleton DO (10/03/2021 10:18 PM) [facility]
--- NOTE | 2021-10-03 22:26 | RAD ---
CT LUMBAR SPINE WO, CT THORACIC SPINE WO History:Reason: FALL, PAIN, DIZZINESS / Spl. Instructions: / History: Technique: Noncontrast CT was performed of the thoracic and lumbar spine. Multiplanar reconstructions were performed. Exposure: One or more of the following individualized dose reduction techniques were utilized for thi s examination: 1. Automated exposure control 2. Adjustment of the mA and/or kV according to patient size 3. Use of iterative reconstruction technique. Comparison: None Findings: Thoracic spine: Normal vertebral body height and alignment. No fracture. No significant canal or neuroforaminal narrowing. Lumbar spine: Normal vertebral body height and alignment. No fracture. No significant canal or neuroforaminal narrowing. Mild lower lumbar facet arthropathy. Impression: 1. No acute fracture or subluxation of the thoracolumbar spine. Electronically signed by: Sang Stapleton DO (10/03/2021 10:23 PM) [facility]
[2021-10-03] MEDS ORDERED: CYCL10TA19 PO (22:39)
[2021-10-03] MEDS ORDERED: IBUP-1007 PO (22:39)
[2021-10-03 22:45] VITALS: BP 100/58
== END 2021-10-03 23:04 | disposition home or self-care (01) ==
LOC: ER 20:03
DX: M54.42 Lumbago with sciatica, left side (principal); R42 Dizziness and giddiness; M54.2 Cervicalgia; R20.0 Anesthesia of skin; G89.11 Acute pain due to trauma; J45.909 Unspecified asthma, uncomplicated; F31.9 Bipolar disorder, unspecified; Z87.891 Personal history of nicotine dependence; W18.39XA Other fall on same level, initial encounter; Y93.89 Activity, other specified; Y92.89 Other specified places as the place of occurrence of the external cause; Y99.8 Other external cause status
CPT/HCPCS: 70450; 72125; 72128; 72131; 72220; 81001; 81025; 99285-25